=== PATIENT | female | born 1980 | race Hispanic/Latino ===

== ENCOUNTER 2022-01-29 10:21 | Outpatient (CLI) | payer OTHER | END 2022-01-29 10:22 | disposition home or self-care (01) | LOC: BICMAMMO 10:21 → EDSTATUS 11:00 | PROVIDERS: ATTEND Family Medicine | DX: Z12.31 Encounter for screening mammogram for malignant neoplasm of breast (principal) | CPT/HCPCS: 77063; 77067 ==